=== PATIENT | male | born 2000 | race Two or more races ===

== ENCOUNTER → 2021-08-24 | Outpatient (CLI) | payer OTHER | END | disposition home or self-care (01) | LOC: SONOGRAMA 12:00 | PROVIDERS: ATTEND General Practice | DX: N50.819 Testicular pain, unspecified (principal); N50.82 Scrotal pain ==

== ENCOUNTER 2021-08-26 17:46 | Emergency (ER) | payer OTHER ==
[~2021-08-26] VITALS: Ht 170.2 cm; Wt 86.2 kg
== END 2021-08-26 22:23 | disposition home or self-care (01) ==
LOC: ER 17:46
DX: R10.31 Right lower quadrant pain (principal); M54.50 Low back pain, unspecified; N45.2 Orchitis; Z88.0 Allergy status to penicillin